=== PATIENT | male | born 1950 | race Caucasian/White ===

== ENCOUNTER 2016-12-27 03:27 | Emergency (ER) | payer MEDICARE, BC ==
[2016-12-27] MEDS ORDERED: NEOMY SULF/POLYMYX B SULF/HC 75 DROP BTL EACHEYE ONE (04:12)
[2016-12-27] MEDS ORDERED: NEOMYCIN/POLYMYXIN B/DEXAMETHA 3.5 APPL TUBE ONE (04:20)
--- NOTE | 2016-12-27 04:28 | ERNOTE ---
ENT HPI Presenting Symptoms: eye pain Time Seen by Provider: 12/27/16 03:52 Source: patient Exam Limitations: no limitations - Immun/Allergies/Home Medications Immunizations: IMMUNIZATION HX Immunizations Up to Date Yes History of Influenza Vaccine No Hx Pneumococcal Vaccination No Allergies/Adverse Reactions: Allergies Allergy/AdvReac Type Severity Reaction Status Date / Time No Known Allergies Allergy Unverified 08/19/13 16:01 Home Medications: HOME MEDICATIONS NK [No Home Medication] 08/19/13 [Last Taken Unknown] - History of Present Illness Narrative: Pt was spraying chemicals earlier today and some blew back into his eyes. He flushed his eyes at that time but they have become progressively worse. Severity: Present: moderate ENT Location: Present: eye (R), eye (L) Prearrival Treatment: Present: flushing eys Review of Systems - Review of Systems Constitutional: Absent: recent illness EYE: Present: see HPI. Absent: vision changes ENT: Present: no symptoms reported Skin: Present: change in color. Absent: rash Neurological: Present: no symptoms reported - Patient's Past Medical History Patient History - Medical: Depression Patient History - Cardiac/Respiratory: No pertinent hx Patient History - Cancer: No Hx of Cancer Patient History - Surgical Procedures: No surgical history Patient History - Other: None - Social History Living Situations: home Abuse History: No History of abuse Psych History: Hx of Depression Smoking Status: Never smoker Alcohol Use: none Drug Use: none - Immunizations Immunizations Up to Date: Yes Hx Pneumococcal Vaccination: No History of Influenza Vaccine: No Physical Exam - Physical Exam General Appearance: Present: wd/wn, alert, no apparent distress Head Exam: Present: normal inspection, no evidence of injury Eye Exam: Sclera injection: bilateral - lower sclera more than upper. pH approx 7.5 Ears, Nose, Throat: Present: normal ENT inspection Neurological Exam: Present: alert, oriented, normal mood/affect Skin Exam: Present: normal color, warm/dry ED Progress - Vital Signs Vital Signs: Vital Signs 12/27/16 03:32 Temperature 36.8 C Pulse Rate 49 L Respiratory 14 Rate Blood Pressure 150/86 O2 Sat by Pulse 99 Oximetry - Progress/Reassessment Chief Complaint: Eye Injury/Trauma Departure Clinical Impression: Conjunctivitis of both eyes Qualifiers: Conjunctivitis type: other Qualified Code(s): H10.89 - Other conjunctivitis - Departure Disposition: Home self-care Condition: Good Instructions: Chemical Conjunctivitis, [id number] Additional Instructions: use eye ointment until eyes are feeling better. See an eye doctor if you begin to worsen. Follow up in ER as needed Referrals: Kyler Mcghee MD [Primary Care Provider] -
[2016-12-27 06:17] VITALS: BP 150/91
== END 2016-12-27 04:30 | disposition home or self-care (01) ==
LOC: ER 03:27
DX: H10.89 Other conjunctivitis (principal)